=== PATIENT | male | born 1995 | race Two or more races ===

== ENCOUNTER 2018-11-13 13:27 | Emergency (ER) | payer SELFPAY ==
[~2018-11-13] VITALS: Ht 190.5 cm; Wt 77.3 kg
[2018-11-13 13:33] VITALS: BP 111/90
== END 2018-11-13 15:00 | disposition left against medical advice (07) ==
LOC: EMS 13:29 → EDSEX 13:29 → EMS 15:00
DX: S09.90XA Unspecified injury of head, initial encounter (principal); W01.10XA Fall on same level from slipping, tripping and stumbling with subsequent striking against unspecified object, initial encounter; Y93.89 Activity, other specified; Y92.89 Other specified places as the place of occurrence of the external cause; Y99.8 Other external cause status; Z53.21 Procedure and treatment not carried out due to patient leaving prior to being seen by health care provider